=== PATIENT | male | born 1960 | race Asian ===

== ENCOUNTER 2016-10-17 16:47 | Emergency (ER) | payer MEDICAID ==
[2016-10-17] MEDS ORDERED: DEXAMETHASONE 10 MG/ML VIAL PO STA (17:02)
[2016-10-17] MEDS ORDERED: oxyCOD/ACETAMIN 5 MG/325 MG TABLET PO STA (17:02)
[2016-10-17] MEDS ORDERED: oxyCOD/ACETAMIN 5 MG/325 MG TABLET PO ONE (17:10)
[2016-10-17] MEDS ORDERED: DEXAMETHASONE 10 MG/ML VIAL ONE (17:10)
[2016-10-17] MEDS ORDERED: CHERRY SYRUP 10 ML UDC PO ONE (17:10)
[2016-10-17 17:25] VITALS: BP 111/93
--- NOTE | 2016-10-17 17:50 | ED Physician Documentation ---
History of Present Illness - Stated complaint Stated Complaint: BILAT HAND PX - Chief complaint Chief Complaint: Ext Problem - Additonal information Additional information: hx from pt and family 55 male prior stroke hx gout to ER with katy wrist pain, no trauma, L for a month and less severe, right for a few days and more severe, spreads to hands and up FA but seems centered over wrists states taking gout meds but med list just has asa and BP meds and zantac and he does not recall the name of what he is taking Review of Systems Constitutional: denies: Fever Skin: denies: Rash Musculoskeletal: reports: Joint pain PD PAST MEDICAL HISTORY - Past Medical History Past Medical History: Yes Cardiovascular: None, Hypertension Respiratory: None Neuro: Other Endocrine/Autoimmune: None GI: None : None HEENT: None Psych: None Musculoskeletal: None Derm: None - Past Surgical History Past Surgical History: Yes - Present Medications Home Medications: Ambulatory Orders Medication Instructions Recorded Confirmed Aspirin [Aspirin EC] 650 mg PO DAILY 02/26/15 03/01/16 amLODIPine [Norvasc] 10/17/16 predniSONE [Deltasone] 40 mg PO DAILY 5 Days 10/17/16 raNITIdine [Zantac] 150 mg PO DAILY 10/17/16 10/17/16 - Allergies Allergies/Adverse Reactions: Allergies Allergy/AdvReac Type Severity Reaction Status Date / Time No Known Drug Allergies Allergy Verified 10/17/16 17:01 - Social History Does the pt smoke?: Yes Smoking Status: Current every day smoker Does the pt drink ETOH?: Yes Does the pt have substance abuse?: No - Immunizations Immunizations are current?: Yes - POLST Patient has POLST: No PD ED PE NORMAL - Vitals Vital signs reviewed: Yes - Cardiac Cardiac: RRR - Respiratory Respiratory: No respiratory distress - Extremities Extremities: Other (katy wrsists slightly swollen but not red or warm, mod pain with ROM but abd, also some pain with moving fingers katy, MSV intact, no deformity or bruising) Results - Vitals Vitals: Vital Signs - 24 hr 10/17/16 10/17/16 16:53 17:24 Temperature 37.3 C Heart Rate 97 81 Respiratory 18 16 Rate Blood Pressure 141/99 H 111/93 H O2 Saturation 99 99 Oxygen O2 Source Room air PD MEDICAL DECISION MAKING - ED course ED course: atypical but hx gout and no fever redness streaking trauma etc and has had wrist gout before - so will rx steroids and provide splints and pt to fup PMD [facility] for a recheck but come back and see me Sat or Sun of worse Departure - Departure Disposition: 01 Home, Self Care Clinical Impression: Gout Qualifiers: Gout site: wrist Gout etiology: unspecified cause Laterality: unspecified laterality Chronicity: acute Qualified Code(s): M10.9 - Gout, unspecified Condition: Good Instructions: ED Arthritis Gout, ED Diet Gout Follow-Up: [facility] [Provider Group] (for a recheck next week) Prescriptions: predniSONE [Deltasone] 40 mg PO DAILY 5 Days Comments: I think your pain is due to gout. The steroids should decrease the inflammation and the pain. And the splints will help support your wrists and ease the pain. Ice for 20 min several times a day will help too. Please follow up with your PMD for a recheck next week. Return to the ER sooner if worse And please get your blood pressure rechecked - it was high today
== END 2016-10-17 18:08 | disposition home or self-care (01) ==
LOC: ED 16:47
DX: M10.032 Idiopathic gout, left wrist (principal); M10.031 Idiopathic gout, right wrist; I10 Essential (primary) hypertension; F17.200 Nicotine dependence, unspecified, uncomplicated; Z79.82 Long term (current) use of aspirin
CPT/HCPCS: 99283; A9270

== ENCOUNTER 2016-11-04 08:47 | Outpatient (CLI) | payer MEDICAID ==
[2016-11-04 13:08] LABS: BASOPHILS # (AUTO) 0.1 10^3/uL (0.0-0.1); BASOPHILS % (AUTO) 0.7 %; EOSINOPHILS # (AUTO) 0.6 10^3/uL (0.0-0.7); EOSINOPHILS % (AUTO) 7.8 %; HCT - HEMATOCRIT 40.2 % (42.0-52.0); HGB - HEMOGLOBIN 13.3 g/dL (14.0-18.0); LYMPHOCYTES # (AUTO) 2.2 10^3/uL (1.5-3.5); LYMPHOCYTES % (AUTO) 29.8 %; MEAN CORPUSCULAR HEMOGLOBIN 28.4 pg (27.0-31.0); MEAN CORPUSCULAR VOLUME 86.1 fL (80.0-94.0); MEAN PLATELET VOLUME 6.3 fL (7.4-11.4); MONOCYTES # (AUTO) 0.7 10^3/uL (0.0-1.0); MONOCYTES % (AUTO) 9.7 %; NEUTROPHILS # (AUTO) 3.8 10^3/uL (1.5-6.6); RED BLOOD COUNT 4.67 10^6/uL (4.70-6.10); RED CELL DISTRIBUTION WIDTH 14.3 % (12.0-15.0); UNCORRECTED WHITE BLOOD COUNT 7.4 x10^3/uL; WHITE BLOOD COUNT 7.4 x10^3/uL (4.8-10.8)
[2016-11-04 13:38] LABS: ALBUMIN/GLOBULIN RATIO 0.9 (1.0-2.2); BILIRUBIN,TOTAL 0.5 mg/dL (0.2-1.0); BUN - BLOOD UREA NITROGEN 21 mg/dL (6-20); CALCIUM 9.2 mg/dL (8.5-10.3); CARBON DIOXIDE - CO2 23 mmol/L (21-32); CHLORIDE 105 mmol/L (101-111); CHOL/HDL RATIO 7.4 (<5.0); CHOLESTEROL 331 mg/dL; CREATININE 1.1 mg/dL (0.6-1.2); GFR - MDRD 70 (>89); GLUCOSE 97 mg/dL (70-100); HDL CHOLESTEROL 45 mg/dL; LDL/HDL RATIO 5.1 (<3.6); POTASSIUM 4.1 mmol/L (3.5-5.0); SODIUM 138 mmol/L (135-145); TOTAL PROTEIN 7.6 g/dL (6.7-8.2); TRIGLYCERIDES 277 mg/dL; VLDL CHOLESTEROL 55 mg/dL
== END 2016-11-04 08:48 | disposition home or self-care (01) ==
LOC: LAB.N 08:47
PROVIDERS: ATTEND Physician Assistant
DX: I10 Essential (primary) hypertension (principal)
CPT/HCPCS: 36415; 80050; 80061

== ENCOUNTER 2017-07-31 14:15 | Outpatient (CLI) | payer MEDICAID | END 2017-07-31 14:30 | disposition home or self-care (01) | LOC: RT.N 14:15 | PROVIDERS: ATTEND Family Medicine | DX: R07.9 Chest pain, unspecified (principal); R00.0 Tachycardia, unspecified | CPT/HCPCS: 93005 ==

== ENCOUNTER 2017-08-16 03:37 | Outpatient (CLI) | payer MEDICAID | END 2017-08-16 03:38 | disposition critical access hospital (66) | LOC: EMS 03:37 | PROVIDERS: ATTEND Surgery | DX: R55 Syncope and collapse (principal) | CPT/HCPCS: A0425; A0427 ==

== ENCOUNTER 2017-08-16 03:55 | Emergency (ER) | payer MEDICAID ==
[2017-08-16 04:21] LABS: BASOPHILS # (AUTO) 0.1 10^3/uL (0.0-0.1); BASOPHILS % (AUTO) 0.5 %; EOSINOPHILS # (AUTO) 0.3 10^3/uL (0.0-0.7); EOSINOPHILS % (AUTO) 2.5 %; HGB - HEMOGLOBIN 14.1 g/dL (14.0-18.0); LYMPHOCYTES # (AUTO) 1.8 10^3/uL (1.5-3.5); LYMPHOCYTES % (AUTO) 14.8 %; MEAN CORPUSCULAR HEMOGLOBIN 28.5 pg (27.0-31.0); MEAN CORPUSCULAR HGB CONC 33.9 g/dL (32.0-36.0); MEAN CORPUSCULAR VOLUME 84.1 fL (80.0-94.0); MEAN PLATELET VOLUME 5.9 fL (7.4-11.4); MONOCYTES # (AUTO) 0.9 10^3/uL (0.0-1.0); MONOCYTES % (AUTO) 7.6 %; NEUTROPHILS # (AUTO) 9.3 10^3/uL (1.5-6.6); NEUTROPHILS % (AUTO) 74.6 %; PLT - PLATELET COUNT 399 10^3/uL (130-450); RED BLOOD COUNT 4.93 10^6/uL (4.70-6.10); RED CELL DISTRIBUTION WIDTH 13.7 % (12.0-15.0); WHITE BLOOD COUNT 12.4 x10^3/uL (4.8-10.8)
[2017-08-16 04:36] LABS: ALBUMIN 4.1 g/dL (3.2-5.5); ALKALINE PHOSPHATASE 96 IU/L (42-121); ALT ALANINE AMINOTRANSFERASE 37 IU/L (10-60); AST ASPARTATE AMINOTRANSFERASE 29 IU/L (10-42); BILIRUBIN,TOTAL 0.9 mg/dL (0.2-1.0); BUN - BLOOD UREA NITROGEN 24 mg/dL (6-20); CALCIUM 9.4 mg/dL (8.5-10.3); CARBON DIOXIDE - CO2 22 mmol/L (21-32); CHLORIDE 102 mmol/L (101-111); CREATININE 1.5 mg/dL (0.6-1.2); GFR - MDRD 49 (>89); GLUCOSE 159 mg/dL (70-100); LIPASE 26 U/L (22-51); SALICYLATE < 6.0 mg/dL; SODIUM 136 mmol/L (135-145); TOTAL PROTEIN 8.4 g/dL (6.7-8.2)
[2017-08-16 04:39] LABS: ACETAMINOPHEN < 10 ug/mL (10-30)
[2017-08-16 05:01] LABS: MUDS CUTOFF CONCENTRATIONS CUTOFF CONC BELOW:
[2017-08-16 05:08] LABS: GLUCOSE, URINE (UA) NEGATIVE (NEGATIVE); KETONES,URINE (UA) NEGATIVE (NEGATIVE); LEUKOCYTE ESTERASE, URINE NEGATIVE (NEGATIVE); NITRITE,URINE NEGATIVE (NEGATIVE); OCCULT BLOOD,URINE TRACE-INTA (NEGATIVE); PROTEIN,URINE TRACE mg/dL (NEGATIVE); UROBILINOGEN,URINE 0.2 (NORMAL) E.U./dL (NORMAL)
[2017-08-16] MEDS ORDERED: SODIUM CHLORIDE 0.9% 1,000 ML IV ONE (05:10)
[2017-08-16 05:16] LABS: BILIRUBIN,URINE NEGATIVE (NEGATIVE); CLARITY,URINE CLEAR (CLEAR); ICTOTEST,URINE NEGATIVE
[2017-08-16 05:29] LABS: AMPHETAMINE SCREEN,URINE POSITIVE (NEGATIVE); BENZODIAZEPINES SCREEN, URINE NEGATIVE (NEGATIVE); COCAINE SCREEN URINE NEGATIVE (NEGATIVE); METHADONE SCREEN, URINE NEGATIVE (NEGATIVE); METHAMPHETAMINES SCREEN, URINE POSITIVE (NEGATIVE); OPIATE SCREEN, URINE NEGATIVE (NEGATIVE); OXYCODONE SCREEN, URINE NEGATIVE (NEGATIVE); PROPOXYPHENE SCREEN, URINE NEGATIVE (NEGATIVE); TRICYCLIC ANTIDEPRESSANT,URINE NEGATIVE (NEGATIVE)
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
[2017-08-16 06:17] VITALS: BP 119/83
== END 2017-08-16 06:29 | disposition home or self-care (01) ==
LOC: EDUNIT# → ED 03:55
DX: E86.0 Dehydration (principal); F15.10 Other stimulant abuse, uncomplicated; I10 Essential (primary) hypertension; Z86.73 Personal history of transient ischemic attack (TIA), and cerebral infarction without residual deficits; Z79.82 Long term (current) use of aspirin; F17.200 Nicotine dependence, unspecified, uncomplicated
CPT/HCPCS: 51701; 80053; 80306; 80307; 80320; 80329; 81001; 81003; 83690; 84484; 85025; 87086; 93005; 96360; 99284

== ENCOUNTER 2018-12-22 10:28 | Day surgery (SDC) | payer MEDICARE ==
[2018-12-22] MEDS ORDERED: LACTATED RINGERS 1,000 ML IV ONE (11:14)
[2018-12-22] MEDS ORDERED: LIDO GARGLE 30 ML BOTTLE ONE (12:14)
[2018-12-22] MEDS ORDERED: fentaNYL 250 MCG/5 ML VIAL IVP ONE (12:40)
[2018-12-22] MEDS ORDERED: MIDAZOLAM 2 MG/2 ML VIAL IVP ONE (12:40)
[2018-12-22] MEDS ORDERED: BENZOCAINE/TETRACAINE/BUTAMBEN 20 GM TOP ONE (12:45)
[2018-12-22] MEDS ORDERED: LIDO GARGLE 30 ML BOTTLE TOP ONE (12:45)
[2018-12-22 14:19] VITALS: BP 112/78
== END 2018-12-22 10:29 | disposition home or self-care (01) ==
LOC: SDS 10:28
PROVIDERS: ATTEND Surgery
PROC: 0DB68ZX Excision of Stomach, Via Natural or Artificial Opening Endoscopic, Diagnostic (ICD-10-PCS; 2018-12-22)
PROC: 0DB58ZX Excision of Esophagus, Via Natural or Artificial Opening Endoscopic, Diagnostic (ICD-10-PCS; 2018-12-22)
PROC: 0DJD8ZZ Inspection of Lower Intestinal Tract, Via Natural or Artificial Opening Endoscopic (ICD-10-PCS; principal; 2018-12-22 12:30)
PROC: 0DB98ZX Excision of Duodenum, Via Natural or Artificial Opening Endoscopic, Diagnostic (ICD-10-PCS; 2018-12-22 12:30)
DX: Z12.11 Encounter for screening for malignant neoplasm of colon (principal); K21.9 Gastro-esophageal reflux disease without esophagitis; R10.13 Epigastric pain; K44.9 Diaphragmatic hernia without obstruction or gangrene; I10 Essential (primary) hypertension; R13.10 Dysphagia, unspecified; F17.210 Nicotine dependence, cigarettes, uncomplicated; K22.2 Esophageal obstruction; K29.80 Duodenitis without bleeding
CPT/HCPCS: 43239; 45378; A9270; J3010; J7120

== ENCOUNTER 2019-03-15 09:42 | Outpatient (CLI) | payer MEDICARE ==
[2019-03-15 12:01] LABS: BASOPHILS % (AUTO) 0.4 %; EOSINOPHILS # (AUTO) 0.5 10^3/uL (0.0-0.7); HGB - HEMOGLOBIN 12.1 g/dL (14.0-18.0); LYMPHOCYTES # (AUTO) 2.4 10^3/uL (1.5-3.5); LYMPHOCYTES % (AUTO) 25.4 %; MEAN CORPUSCULAR HEMOGLOBIN 27.6 pg (27.0-31.0); MEAN CORPUSCULAR HGB CONC 32.1 g/dL (32.0-36.0); MEAN CORPUSCULAR VOLUME 85.9 fL (80.0-94.0); MEAN PLATELET VOLUME 8.1 fL (7.4-11.4); MONOCYTES % (AUTO) 10.7 %; NEUTROPHILS # (AUTO) 5.4 10^3/uL (1.5-6.6); PLT - PLATELET COUNT 371 10^3/uL (130-450); RED BLOOD COUNT 4.39 10^6/uL (4.70-6.10); RED CELL DISTRIBUTION WIDTH 13.3 % (12.0-15.0); WHITE BLOOD COUNT 9.3 x10^3/uL (4.8-10.8)
[2019-03-15 12:17] LABS: ALBUMIN 3.5 g/dL (3.2-5.5); ALBUMIN/GLOBULIN RATIO 0.7 (1.0-2.2); ALKALINE PHOSPHATASE 76 IU/L (42-121); ALT ALANINE AMINOTRANSFERASE 25 IU/L (10-60); AST ASPARTATE AMINOTRANSFERASE 22 IU/L (10-42); BILIRUBIN,TOTAL 0.7 mg/dL (0.2-1.0); BUN - BLOOD UREA NITROGEN 13 mg/dL (6-20); CALCIUM 8.9 mg/dL (8.5-10.3); CARBON DIOXIDE - CO2 26 mmol/L (21-32); CHLORIDE 102 mmol/L (101-111); CHOL/HDL RATIO 5.3 (<5.0); CHOLESTEROL 142 mg/dL; CREATININE 1.1 mg/dL (0.6-1.2); GFR - MDRD 69 (>89); GLUCOSE 109 mg/dL (70-100); HDL CHOLESTEROL 27 mg/dL; LDL CHOLESTEROL,CALCULATED 78 mg/dL; LDL/HDL RATIO 2.9 (<3.6); SODIUM 140 mmol/L (135-145); TOTAL PROTEIN 8.2 g/dL (6.7-8.2); VLDL CHOLESTEROL 37 mg/dL
== END 2019-03-15 23:59 | disposition home or self-care (01) ==
LOC: LAB.N 09:42
PROVIDERS: ATTEND Physician Assistant Medical
DX: I10 Essential (primary) hypertension (principal); R13.10 Dysphagia, unspecified; E78.5 Hyperlipidemia, unspecified
CPT/HCPCS: 36415; 80053; 80061; 83721; 84443; 85025

== ENCOUNTER 2020-07-03 08:00 | Outpatient (CLI) | payer MEDICARE ==
[2020-07-03 11:38] LABS: BASOPHILS # (AUTO) 0.1 10^3/uL (0.0-0.1); BASOPHILS % (AUTO) 0.6 %; EOSINOPHILS # (AUTO) 0.6 10^3/uL (0.0-0.7); EOSINOPHILS % (AUTO) 7.4 %; HGB - HEMOGLOBIN 12.9 g/dL (14.0-18.0); LYMPHOCYTES # (AUTO) 2.1 10^3/uL (1.5-3.5); LYMPHOCYTES % (AUTO) 25.1 %; MEAN CORPUSCULAR HGB CONC 31.1 g/dL (32.0-36.0); MEAN CORPUSCULAR VOLUME 90.2 fL (80.0-94.0); MEAN PLATELET VOLUME 8.8 fL (7.4-11.4); MONOCYTES # (AUTO) 0.8 10^3/uL (0.0-1.0); MONOCYTES % (AUTO) 9.1 %; NEUTROPHILS # (AUTO) 4.8 10^3/uL (1.5-6.6); NEUTROPHILS % (AUTO) 57.2 %; PLT - PLATELET COUNT 295 10^3/uL (130-450); RED CELL DISTRIBUTION WIDTH 13.2 % (12.0-15.0); WHITE BLOOD COUNT 8.4 x10^3/uL (4.8-10.8)
[2020-07-03 12:40] LABS: ALKALINE PHOSPHATASE 76 IU/L (42-121); ALT ALANINE AMINOTRANSFERASE 23 IU/L (10-60); AST ASPARTATE AMINOTRANSFERASE 21 IU/L (10-42); BILIRUBIN,TOTAL 0.5 mg/dL (0.2-1.0); BUN - BLOOD UREA NITROGEN 23 mg/dL (6-20); CALCIUM 9.5 mg/dL (8.5-10.3); CARBON DIOXIDE - CO2 24 mmol/L (21-32); CHLORIDE 105 mmol/L (101-111); CHOL/HDL RATIO 5.1 (<5.0); CHOLESTEROL 194 mg/dL; CREATININE 1.1 mg/dL (0.6-1.2); GLUCOSE 120 mg/dL (70-100); HDL CHOLESTEROL 38 mg/dL; LDL CHOLESTEROL,CALCULATED 90 mg/dL; LDL/HDL RATIO 2.4 (<3.6); TOTAL PROTEIN 7.9 g/dL (6.7-8.2); VLDL CHOLESTEROL 66 mg/dL
== END 2020-07-03 23:59 | disposition home or self-care (01) ==
LOC: LAB.WCP 08:00
PROVIDERS: ATTEND Family Medicine
DX: I10 Essential (primary) hypertension (principal); R94.31 Abnormal electrocardiogram [ECG] [EKG]; E78.5 Hyperlipidemia, unspecified
CPT/HCPCS: 36415; 80053; 80061; 83721; 84443; 85025

== ENCOUNTER 2020-07-31 08:00 | Outpatient (CLI) | payer MEDICARE ==
[2020-07-31 19:27] LABS: ESTIMATED AVERAGE GLUCOSE 137 mg/dL (70-100); HEMOGLOBIN A1c% 6.4 % (4.27-6.07)
== END 2020-07-31 23:59 | disposition home or self-care (01) ==
LOC: LAB.WCP 08:00
PROVIDERS: ATTEND Nurse Practitioner Family
DX: R73.9 Hyperglycemia, unspecified (principal)
CPT/HCPCS: 36415; 83036

== ENCOUNTER 2020-10-31 12:35 | Outpatient (CLI) | payer MEDICARE ==
--- NOTE | 2020-10-31 13:43 | XRAY Report ---
PROCEDURE: Wrist 3 View RT INDICATIONS: R WRIST PX TECHNIQUE: 3 views of the wrist were acquired. COMPARISON: None. FINDINGS: Bones: No fractures or dislocations. Osteoarthritic changes along radial aspect of right wrist are s een. No suspicious bony lesions. Soft tissues: No suspicious soft tissue calcifications. IMPRESSION: No wrist fracture or dislocation. 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 Reviewed by: Jr Leon MD on 10/31/2020 1:42 PM PDT Approved by: Jr Leon MD on 10/31/2020 1:42 PM PDT Station ID: [id number]
== END 2020-10-31 12:36 | disposition home or self-care (01) ==
LOC: DI.N 12:35
PROVIDERS: ATTEND Physician Assistant
DX: M19.031 Primary osteoarthritis, right wrist (principal); M25.531 Pain in right wrist; M25.431 Effusion, right wrist

== ENCOUNTER 2021-03-01 08:00 | Outpatient (CLI) | payer MEDICARE ==
[2021-03-01 18:11] LABS: BASOPHILS % (AUTO) 0.5 %; EOSINOPHILS # (AUTO) 0.6 10^3/uL (0.0-0.7); EOSINOPHILS % (AUTO) 7.1 %; HGB - HEMOGLOBIN 13.1 g/dL (14.0-18.0); MEAN CORPUSCULAR HEMOGLOBIN 27.9 pg (27.0-31.0); MEAN CORPUSCULAR HGB CONC 31.2 g/dL (32.0-36.0); MEAN CORPUSCULAR VOLUME 89.4 fL (80.0-94.0); MEAN PLATELET VOLUME 8.4 fL (7.4-11.4); MONOCYTES # (AUTO) 0.6 10^3/uL (0.0-1.0); MONOCYTES % (AUTO) 7.3 %; NEUTROPHILS # (AUTO) 4.6 10^3/uL (1.5-6.6); NEUTROPHILS % (AUTO) 58.6 %; PLT - PLATELET COUNT 298 10^3/uL (130-450); RED CELL DISTRIBUTION WIDTH 13.6 % (12.0-15.0); WHITE BLOOD COUNT 7.8 x10^3/uL (4.8-10.8)
[2021-03-01 18:22] LABS: BILIRUBIN,URINE NEGATIVE (NEGATIVE); GLUCOSE, URINE (UA) NEGATIVE (NEGATIVE); KETONES,URINE (UA) NEGATIVE (NEGATIVE); LEUKOCYTE ESTERASE, URINE NEGATIVE (NEGATIVE); NITRITE,URINE NEGATIVE (NEGATIVE); OCCULT BLOOD,URINE TRACE-INTA (NEGATIVE); PROTEIN,URINE NEGATIVE (NEGATIVE); UROBILINOGEN,URINE 0.2 (NORMAL) E.U./dL (NORMAL)
[2021-03-01 18:23] LABS: CLARITY,URINE CLEAR (CLEAR)
[2021-03-01 18:30] LABS: CREATININE,URINE 78.2 mg/dL; MICROALBUM/CREATININE RATIO,UR 69.1 ug/mg (<30.0); MICROALBUMIN,URINE 5.4 mg/dL (0-300.0)
[2021-03-01 18:36] LABS: ALKALINE PHOSPHATASE 67 IU/L (42-121); ALT ALANINE AMINOTRANSFERASE 20 IU/L (10-60); AST ASPARTATE AMINOTRANSFERASE 17 IU/L (10-42); BILIRUBIN,TOTAL 0.6 mg/dL (0.2-1.0); BUN - BLOOD UREA NITROGEN 17 mg/dL (6-20); CALCIUM 9.1 mg/dL (8.5-10.3); CARBON DIOXIDE - CO2 24 mmol/L (21-32); CHLORIDE 106 mmol/L (101-111); CHOL/HDL RATIO 5.6 (<5.0); CHOLESTEROL 207 mg/dL; CREATININE 1.1 mg/dL (0.6-1.2); GFR - MDRD 69 (>89); GLUCOSE 99 mg/dL (70-100); HDL CHOLESTEROL 37 mg/dL; LDL CHOLESTEROL,CALCULATED 100 mg/dL; LDL/HDL RATIO 2.7 (<3.6); POTASSIUM 3.9 mmol/L (3.5-5.0); SODIUM 140 mmol/L (135-145); TRIGLYCERIDES 352 mg/dL; VLDL CHOLESTEROL 70 mg/dL
[2021-03-01 18:41] LABS: THYROID STIMULATING HORMONE 3.85 uIU/mL (0.34-5.60)
[2021-03-01 19:05] LABS: BACTERIA,URINE None Seen /HPF (None Seen); RBC,URINE None Seen /HPF (0-5); SQUAMOUS EPITHELIAL CELL,UR NONE SEEN (<= Few); WBC,URINE 0-3 /HPF (0-3)
[2021-03-01 21:10] LABS: ESTIMATED AVERAGE GLUCOSE 140 mg/dL (70-100); HEMOGLOBIN A1c% 6.5 % (4.27-6.07)
== END 2021-03-01 23:59 | disposition home or self-care (01) ==
LOC: LAB.WCP 08:00
PROVIDERS: ATTEND Nurse Practitioner
DX: I10 Essential (primary) hypertension (principal); E78.5 Hyperlipidemia, unspecified; Z12.5 Encounter for screening for malignant neoplasm of prostate; R73.9 Hyperglycemia, unspecified
CPT/HCPCS: 36415; 80053; 80061; 81001; 82043; 82570; 83036; 84443; 85025; G0103; 83721; 84153; 87086

== ENCOUNTER 2022-08-22 08:51 | Outpatient (CLI) | payer MEDICARE ==
[2022-08-22 12:28] LABS: ESTIMATED AVERAGE GLUCOSE 134 mg/dL (70-100); HEMOGLOBIN A1c% 6.3 % (4.27-6.07)
== END 2022-08-22 08:52 | disposition home or self-care (01) ==
LOC: LAB.N 08:51
PROVIDERS: ATTEND Nurse Practitioner
DX: E11.9 Type 2 diabetes mellitus without complications (principal)
CPT/HCPCS: 36415; 83036

== ENCOUNTER 2023-02-17 08:43 | Outpatient (CLI) | payer MEDICARE ==
[2023-02-17 12:23] LABS: BASOPHILS # (AUTO) 0.1 10^3/uL (0.0-0.1); BASOPHILS % (AUTO) 0.8 %; EOSINOPHILS # (AUTO) 0.6 10^3/uL (0.0-0.7); EOSINOPHILS % (AUTO) 8.2 %; HGB - HEMOGLOBIN 13.2 g/dL (14.0-18.0); LYMPHOCYTES % (AUTO) 25.9 %; MEAN CORPUSCULAR HEMOGLOBIN 28.4 pg (27.0-31.0); MEAN CORPUSCULAR HGB CONC 31.4 g/dL (32.0-36.0); MEAN CORPUSCULAR VOLUME 90.5 fL (80.0-94.0); MEAN PLATELET VOLUME 8.6 fL (7.4-11.4); MONOCYTES # (AUTO) 0.7 10^3/uL (0.0-1.0); NEUTROPHILS # (AUTO) 4.2 10^3/uL (1.5-6.6); NEUTROPHILS % (AUTO) 55.6 %; PLT - PLATELET COUNT 263 10^3/uL (130-450); RED BLOOD COUNT 4.64 10^6/uL (4.70-6.10); RED CELL DISTRIBUTION WIDTH 13.5 % (12.0-15.0); WHITE BLOOD COUNT 7.5 x10^3/uL (4.8-10.8)
[2023-02-17 12:54] LABS: ALBUMIN 4.4 g/dL (3.2-5.5); ALBUMIN/GLOBULIN RATIO 1.4 (1.0-2.2); ALKALINE PHOSPHATASE 69 IU/L (42-121); ALT ALANINE AMINOTRANSFERASE 13 IU/L (10-60); AST ASPARTATE AMINOTRANSFERASE 14 IU/L (10-42); BILIRUBIN,TOTAL 0.5 mg/dL (0.2-1.0); BUN - BLOOD UREA NITROGEN 25 mg/dL (6-20); CALCIUM 9.5 mg/dL (8.5-10.3); CARBON DIOXIDE - CO2 26 mmol/L (21-32); CHLORIDE 106 mmol/L (101-111); CHOL/HDL RATIO 5.6 (<5.0); CHOLESTEROL 220 mg/dL; GFR - MDRD 76 (>89); GLUCOSE 108 mg/dL (74-104); HDL CHOLESTEROL 39 mg/dL; POTASSIUM 4.1 mmol/L (3.5-4.5); SODIUM 139 mmol/L (135-145); TOTAL PROTEIN 7.6 g/dL (6.4-8.9); TRIGLYCERIDES 408 mg/dL (48-352)
[2023-02-17 16:39] LABS: LDL CHOLESTEROL,DIRECT 112 mg/dL (75-193); LDLD/HDL RATIO 2.9 (<3.6)
== END 2023-02-17 08:44 | disposition home or self-care (01) ==
LOC: LAB.N 08:43
PROVIDERS: ATTEND Nurse Practitioner
DX: I10 Essential (primary) hypertension (principal); E78.5 Hyperlipidemia, unspecified; Z12.5 Encounter for screening for malignant neoplasm of prostate; M10.9 Gout, unspecified
CPT/HCPCS: 36415; 80053; 80061; 83721; 84550; 85025; G0103; 84153

== ENCOUNTER 2023-11-30 12:15 | Outpatient (CLI) | payer MEDICARE ==
[2023-11-30 18:20] LABS: CREATININE,URINE 81.4 mg/dL; MICROALBUM/CREATININE RATIO,UR 24.6 ug/mg (<30.0)
[2023-11-30 20:48] LABS: ESTIMATED AVERAGE GLUCOSE 117 mg/dL (70-100); HEMOGLOBIN A1c% 5.7 % (4.27-6.07)
== END 2023-11-30 12:16 | disposition home or self-care (01) ==
LOC: LAB.N 12:15
PROVIDERS: ATTEND Nurse Practitioner
DX: E11.9 Type 2 diabetes mellitus without complications (principal); M25.561 Pain in right knee
CPT/HCPCS: 36415; 82043; 82570; 83036; 84550

== ENCOUNTER 2023-11-30 12:17 | Outpatient (CLI) | payer MEDICARE ==
--- NOTE | 2023-11-30 22:06 | XRAY Report ---
PROCEDURE: Knee 4+V RT INDICATIONS: KNEE PAIN, RIGHT TECHNIQUE: 4 views of the knee(s) were acquired. COMPARISON: None. FINDINGS: Bones: No fractures or dislocations. Moderate tricompartmental osteoarthritis with joint space narro wing, subchondral sclerosis and marginal osteophyte formation most notably medial femoral tibial comp artment. No significant patellar subluxation. No suspicious bony lesions. Soft tissues: Small knee joint effusion. No suspicious soft tissue calcifications or masses. IMPRESSION: No acute right knee fracture or dislocation. Moderate tricompartmental osteoarthritis most notably medial femoral tibial compartment. Small joint effusion. Reviewed by: Jr Silva MD on 11/30/2023 10:04 PM PDT Approved by: Jr Silva MD on 11/30/2023 10:04 PM PDT Station ID: [id number]
== END 2023-11-30 12:18 | disposition home or self-care (01) ==
LOC: DI.N 12:17
PROVIDERS: ATTEND Nurse Practitioner
DX: M17.11 Unilateral primary osteoarthritis, right knee (principal); M25.461 Effusion, right knee; E11.9 Type 2 diabetes mellitus without complications
CPT/HCPCS: 36415; 82043; 82570; 83036; 84550